=== PATIENT | male | born 1990 | race Caucasian/White ===

== ENCOUNTER 2016-08-02 07:14 | Day surgery (SDC) | payer BC ==
[~2016-08-02] VITALS: Ht 172.7 cm; Wt 107.3 kg
[2016-08-02] VITALS (8 sets, daily range): BP systolic 111–142; BP diastolic 67–85; PULSE 54–66; TEMP 98–98.1
[~2016-08-02 07:14] MED LIST: ANTIBIOTIC
[2016-08-02] MEDS ORDERED: DOXYCYCLINE HY100 MG PO (08:08)
[2016-08-02] MEDS ORDERED: TYLENOL 500MG500 MG PO (08:09)
[2016-08-02] MEDS ORDERED: ADVIL200 MG PO (08:09)
[2016-08-02] MEDS ORDERED: NORCO 325 MG-7.1 TAB PO (10:37)
== END 2016-08-02 13:05 | disposition home or self-care (01) ==
LOC: SDCO 07:14
DX: L05.02 Pilonidal sinus with abscess (principal); G47.30 Sleep apnea, unspecified; F32.9 Major depressive disorder, single episode, unspecified; Z80.0 Family history of malignant neoplasm of digestive organs; Z72.0 Tobacco use
CPT/HCPCS: J1885; J2405; J2704; J3010; J7120